=== PATIENT | male | born 1955 | race Caucasian/White ===

== ENCOUNTER 2018-09-28 11:00 | Emergency (ER) | payer OTHER ==
[~2018-09-28] VITALS: Ht 182.9 cm; Wt 86.2 kg
[2018-09-28] MEDS ORDERED: COZAAR25 MG (12:05)
[2018-09-28] MEDS ORDERED: UROXATRAL10 MG (12:06)
[2018-09-28] MEDS ORDERED: [UNRECOGNIZED DRUG - OTHER] (12:09)
[2018-09-28] MEDS ORDERED: NEURONTIN300 MG (12:09)
== END 2018-09-28 18:06 | disposition home or self-care (01) ==
LOC: ER 11:00 → EDBD 11:17 → ER 11:17
DX: N20.1 Calculus of ureter (principal)